=== PATIENT | female | born 1980 | race Caucasian/White ===

== ENCOUNTER 2017-04-20 01:29 | Emergency (ER) | payer BC ==
[~2017-04-20] VITALS: Ht 167.6 cm; Wt 122.5 kg
--- NOTE | ~2017-04-20 | EKG ---
[place] [address] [email or web address] [place] [address] ELECTROCARDIOGRAM REPORT Name: JOSIE WISEMAN Jeniffer Room #: [facility]#: [id number] Admission: 04/20/17 Attend Phys: Discharge: 04/20/17 Date of : 80 Report #: [id number] THIS REPORT FOR: //name// [facility] ED Test Date: 2017-04-20 Test Time: 01:58:45 Pat Name: JOSIE WISEMAN Department: Room: Gender: F Manager Drug: JACINTO : 1980 Requested By: Celso Baldwin Order Number: [id number] MD: Francisco Renee Measurements Intervals [place] Rate: 76 P: 40 NE: 156 QRS: -11 QRSD: 90 T: 26 QT: 376 QTc: 423 Interpretive Statements Sinus rhythm Inferior infarct, old Compared to ECG 08/19/2009 16:37:09 Inferior Q waves are more prominent Electronically Signed On 04-21-2017 13:42:29 CDT by Francisco Renee [email or web address] <ELECTRONICALLY SIGNED> By: Francisco Renee MD, [facility] 04/21/17 1342 [id number] Francisco Renee MD, [facility] /EPI
--- NOTE | ~2017-04-20 | EKG ---
[address] [place] [address] ELECTROCARDIOGRAM REPORT Name: JOSIE WISEMAN Jeniffer Room #: DEP [facility]#: [id number] Admission: 04/20/17 Attend Phys: Discharge: 04/20/17 Date of : 80 Report #: [id number] THIS REPORT FOR: //name// [facility] ED Test Date: 2017-04-20 Test Time: 01:59:56 Pat Name: JOSIE WISEMAN Department: Room: Gender: F [employer] Operator: JACINTO : 1980 Requested By: Celso Baldwin Order Number: [id number] MD: Francisco Renee Measurements Intervals [place] Rate: 71 P: 29 MI: 155 QRS: -11 QRSD: 86 T: 29 QT: 372 QTc: 405 Interpretive Statements Sinus rhythm Cannot rule out inferior infarct, old Compared to ECG 08/19/2009 16:37:09 No significant changes Electronically Signed On 04-21-2017 13:42:48 CDT by Francisco Renee [email or web address] <ELECTRONICALLY SIGNED> By: Francisco Renee MD, [facility] 04/21/17 1342 [id number] Francisco Renee MD, [facility] /EPI
[~2017-04-20 01:29] MED LIST: CIPROFLOXACIN500 M1 PO; LANTUS SC; NOVOLIN R100 UNIT/1 IJ; PERCOCET 5-3251 EACH PO; PREDNISONE50 MG PO; PRENATAL; PREVACID15 MG PO; TESSALON200 MG PO; ULTRAM 50MG TAB50 MG PO; ZOFRAN ODT4 MG PO
[2017-04-20 01:33] VITALS: BP 109/60
[2017-04-20] MEDS ORDERED: WELLBUTRIN XL300 MG PO (01:40)
[2017-04-20] MEDS ORDERED: XANAX1 MG PO (01:41)
[2017-04-20] MEDS ORDERED: TYLENOL325 MG PO (01:41)
[2017-04-20 01:50] LABS: ABSOLUTE NEUTROPHILS 4.3 thou/uL (1.4-8.2); BASOPHILS 0.6 % (0.0-2.0); EOSINOPHILS 0.8 % (0.0-3.0); HEMATOCRIT 41.5 % (37.0-47.0); LYMPHOCYTES 44.5 % (24.0-44.0); MCHC 33.6 g/dL (28.0-37.0); MCV 86.2 fL (80.0-100.0); MONOCYTES 6.8 % (1.0-8.0); PLATELET COUNT 220 thou/uL (150-400); POLYS 47.3 % (36.0-66.0); RBC 4.81 mil/uL (4.20-5.00); RDW 12.5 % (10.5-14.5)
[2017-04-20 01:52] LABS: MANUAL DIFF NO
[2017-04-20 02:00] LABS: ANION GAP 10 mmol/L (7-16); BUN 14 mg/dL (7-18); CALCIUM 8.3 mg/dL (8.5-10.1); CHLORIDE 103 mmol/L (98-107); CO2 27 mmol/L (21-32); CREATININE 0.7 mg/dL (0.6-1.0); GLUCOSE 97 mg/dL (74-106); POTASSIUM 4.1 mmol/L (3.5-5.1); SODIUM 140 mmol/L (136-145)
[2017-04-20 02:05] LABS: APTT 26.2 Seconds (24.5-32.8); PROTIME 9.6 Seconds (9.3-11.4)
[2017-04-20 02:09] LABS: ALBUMIN 4.1 g/dL (3.4-5.0); ALKALINE PHOSPHATASE 66 U/L (46-116); SGOT 17 U/L (15-37); SGPT 30 U/L (30-65); TOTAL BILIRUBIN 0.3 mg/dL (<0.1-1.0); TOTAL PROTEIN 8.1 g/dL (6.4-8.2); TROPONIN-I < 0.04 ng/mL (<0.04-0.07)
[2017-04-20] MEDS ORDERED: PRILOSEC 20 MG20 MG PO (03:16)
[2017-04-20] MEDS ORDERED: NITROGLYCERIN0.4 MG SUBLING (03:16)
== END 2017-04-20 04:30 | disposition home or self-care (01) ==
LOC: ER 01:29
PROVIDERS: Emergency Medicine
DX: R07.89 Other chest pain (principal); E11.9 Type 2 diabetes mellitus without complications; G43.909 Migraine, unspecified, not intractable, without status migrainosus; Z98.890 Other specified postprocedural states; E66.9 Obesity, unspecified; F10.99 Alcohol use, unspecified with unspecified alcohol-induced disorder; Z88.0 Allergy status to penicillin; Z88.1 Allergy status to other antibiotic agents; Z88.5 Allergy status to narcotic agent; Z88.8 Allergy status to other drugs, medicaments and biological substances; Z79.4 Long term (current) use of insulin